=== PATIENT | male | born 1970 | race Caucasian/White ===

== ENCOUNTER 2017-01-26 19:15 | Emergency (ER) | payer MEDICAID ==
[~2017-01-26] VITALS: Ht 177.8 cm; Wt 92.5 kg
[2017-01-26] MEDS ORDERED: IBUPROFEN 600 MG TABLET PO ONE (20:15)
[2017-01-26 21:34] VITALS: BP 133/78
== END 2017-01-26 21:35 | disposition home or self-care (01) ==
LOC: EMS 19:17
DX: S93.402A Sprain of unspecified ligament of left ankle, initial encounter (principal); F17.210 Nicotine dependence, cigarettes, uncomplicated; X58.XXXA Exposure to other specified factors, initial encounter; Y93.89 Activity, other specified; Y92.89 Other specified places as the place of occurrence of the external cause; Y99.8 Other external cause status
CPT/HCPCS: 99284

== ENCOUNTER 2017-02-02 09:42 | Emergency (ER) | payer MEDICAID ==
[~2017-02-02] VITALS: Ht 177.8 cm; Wt 93.2 kg
[2017-02-02 10:18] VITALS: BP 120/77
[2017-02-02] MEDS ORDERED: AMOX TR/POT CLAV 875 MG/125 MG TABLET PO ONE (11:00)
== END 2017-02-02 11:09 | disposition home or self-care (01) ==
LOC: EMS 09:44
DX: L03.115 Cellulitis of right lower limb (principal); L03.116 Cellulitis of left lower limb; F17.210 Nicotine dependence, cigarettes, uncomplicated
CPT/HCPCS: 99283

== ENCOUNTER 2017-02-10 19:20 | Emergency (ER) | payer MEDICAID ==
[~2017-02-10] VITALS: Ht 177.8 cm; Wt 95.0 kg
[2017-02-10] MEDS ORDERED: AMOX1TAB16 PO (19:46)
[2017-02-10 20:02] VITALS: BP 135/76
[2017-02-10] MEDS ORDERED: HYDROCORTISONE 1% 1.5 GM CREAM TP ONE (20:15)
[2017-02-10] MEDS ORDERED: DiphenhydrAMINE HCL 25 MG CAPSULE PO ONE (20:15)
== END 2017-02-10 20:52 | disposition home or self-care (01) ==
LOC: EMS 19:22
DX: L25.9 Unspecified contact dermatitis, unspecified cause (principal); F17.210 Nicotine dependence, cigarettes, uncomplicated
CPT/HCPCS: 99283

== ENCOUNTER 2022-02-26 11:18 | Emergency (ER) | payer MEDICAID, OTHER ==
[~2022-02-26] VITALS: Ht 175.3 cm; Wt 84.1 kg
[~2022-02-26 11:18] MED LIST: AMOX1TAB16 PO
[2022-02-26] MEDS ORDERED: ACETAMINOPHEN 500 MG TABLET PO ONE (14:30)
[2022-02-26] MEDS ORDERED: IBUP-2070 PO (16:27)
[2022-02-26 17:21] VITALS: BP 140/80
== END 2022-02-26 17:22 | disposition home or self-care (01) ==
LOC: EMS 11:18
DX: S92.351A Displaced fracture of fifth metatarsal bone, right foot, initial encounter for closed fracture (principal); F17.210 Nicotine dependence, cigarettes, uncomplicated; W19.XXXA Unspecified fall, initial encounter; Y93.89 Activity, other specified; Y92.89 Other specified places as the place of occurrence of the external cause; Y99.8 Other external cause status
CPT/HCPCS: 29515; 99283